=== PATIENT | female | born 1995 | race Caucasian/White ===

== ENCOUNTER 2017-07-12 11:18 | Emergency (ER) | payer BC, SELFPAY ==
[~2017-07-12 11:18] MED LIST: Iopamidol 370 76% 100 ML VIAL ONE
[2017-07-12] MEDS ORDERED: Ondansetron HCl/PF 4 MG/2 ML Vial ONE (11:50)
[2017-07-12 12:14] LABS: #Basophils 0.1 thou/uL (0.0-0.2); #Eosinphils 0.2 thou/uL (0.0-0.7); #Monocytes 0.4 thou/uL (0.11-0.59); #Neutrophils 5.6 thou/uL (1.40-6.50); %Basophils 1.4 % (0.0-1.0); %Eosinophils 2.8 % (0.0-10.0); %Lymphocytes 23.6 % (21.0-51.0); Hematocrit 46.3 % (36.0-47.0); Mean Platelet Volume 7.9 fL (7.4-10.4); Red Blood Cell (RBC) Count 5.03 mill/uL (4.20-5.40); White Blood Cell (WBC) Count 8.3 thou/uL (4.8-10.8)
[2017-07-12 12:23] LABS: ALT (SGPT) 26 U/L (8-55); AST (SGOT) 27 U/L (5-34); Alkaline Phosphatase 77 U/L (40-150); Anion Gap 17 mmol/L (10-20); BUN (Urea Nitrogen) 10 mg/dL (7.0-18.7); Bilirubin, Total 0.7 mg/dL (0.2-1.2); Calc. Creatinine Clearance 0 mL/min (70-130); Calcium 9.2 mg/dL (7.8-10.44); Carbon Dioxide 19 mmol/L (22-29); Chloride 110 mmol/L (98-107); Estimated GFR-MDRD Greater than 90; Globulin 3.6 g/dL (2.4-3.5); Lipase 22 U/L (8-78); Protein, Total 7.6 g/dL (6.0-8.3)
[2017-07-12] MEDS ORDERED: Ketorolac Tromethamine 30 MG/ML VIAL ONE (12:38)
--- NOTE | 2017-07-12 13:04 | CT ---
CT ABDOMEN AND PELVIS WITH IV CONTRAST: Date: 07/12/17 HISTORY: Abdomen pain. Nausea. COMPARISON: 11/18/11. FINDINGS: The lung bases are clear. The liver, spleen, kidneys, adrenal glands, and pancreas are within normal limits. No enlarged lymph nodes or free fluid are apparent. Follicles arise from the ovaries. Urina ry bladder is incompletely distended. Motion artifact is present, limiting detail somewhat. Lack of oral contrast limits evaluation of the bowel. IMPRESSION: No significant abnormalities are demonstrated. POS: [facility]MA[facility]
== END 2017-07-12 13:40 | disposition home or self-care (01) ==
LOC: SCSER 11:18
DX: R10.31 Right lower quadrant pain (principal); F41.9 Anxiety disorder, unspecified; F32.9 Major depressive disorder, single episode, unspecified; I10 Essential (primary) hypertension
CPT/HCPCS: 36415; 74177; 80053; 83690; 84703; 85025; 96361; 96374; 96375; J1885; J2270; J2405

== ENCOUNTER 2020-10-23 12:07 | Outpatient (CLI) | payer OTHER ==
[2020-10-23 14:31] LABS: BHCG - Serum Negative (NEGATIVE); Pregs Control Background? CLEAR/WHITE (CLR/WHITE); Pregs Control Bar Appear? YES (CONTROL BAR)
[2020-10-24 06:44] LABS: SARS-CoV-2 PCR by NAA Not Detected (NotDetected)
== END 2020-10-23 12:08 | disposition home or self-care (01) ==
LOC: LABBT 12:07
PROVIDERS: ATTEND Student in an Organized Health Care Education/Training Program
DX: Z01.812 Encounter for preprocedural laboratory examination (principal); Z20.822 Contact with and (suspected) exposure to COVID-19; J03.91 Acute recurrent tonsillitis, unspecified; J35.01 Chronic tonsillitis; J31.2 Chronic pharyngitis; R06.83 Snoring; F45.8 Other somatoform disorders
CPT/HCPCS: 84703; 85014; 87635; U0003; U0005

== ENCOUNTER 2020-10-28 05:57 | Day surgery (SDC) | payer OTHER ==
[2020-10-27 13:43] VITALS: BMI 49.4
[2020-10-28] MEDS ORDERED: Albuterol Sulfate HFA (OR ONLY) ONE (06:49)
[2020-10-28] MEDS ORDERED: Fentanyl 250 MCG/5 ML VIAL ONE (06:49)
[2020-10-28] MEDS ORDERED: Lidocaine 4% Topical Sol 50 ML BOT ONE (06:49)
[2020-10-28] MEDS ORDERED: Midazolam HCl 2 mg/2 ml Vial ONE (07:10)
[2020-10-28] MEDS ORDERED: Acetaminophen 500 MG TAB ONE (07:10)
[2020-10-28] MEDS ORDERED: Morphine 4 MG/ML VIAL ONE (07:51)
[2020-10-28] MEDS ORDERED: Albuterol Sulfate 1.25 MG/3 ML NEB ONE (08:19)
[2020-10-28] MEDS ORDERED: Promethazine HCl 25 MG/ML VIAL ONE (08:29)
[2020-10-28] MEDS ORDERED: Ondansetron PF 4 MG/2 ML Vial ONE ×2 (09:20→11:21)
[2020-10-28] MEDS ORDERED: Dexamethasone 20 MG/5 ML VIAL ONE (11:21)
[2020-10-28] MEDS ORDERED: Rocuronium Bromide 10 MG/ML (10ML VIAL) ONE (11:21)
[2020-10-28] MEDS ORDERED: Succinylcholine 200 MG/10 ml SYRINGE FS ONE (11:21)
[2020-10-28] MEDS ORDERED: Ketorolac Tromethamine 30 MG/ML VIAL ONE (11:21)
[2020-10-28] MEDS ORDERED: PROPOFOL 200 MG/20 ML VIAL ONE (11:21)
[2020-10-28] MEDS ORDERED: Lidocaine 1% PF 5 ML VIAL ONE (11:21)
--- NOTE | 2020-10-30 07:23 | OP ---
DATE OF PROCEDURE: 10/28/2020 PROCEDURE PERFORMED: Tonsillectomy. PREOPERATIVE DIAGNOSIS: Recurrent tonsillitis. POSTOPERATIVE DIAGNOSIS: Recurrent tonsillitis and tonsillar hypertrophy. PERMIT: Procedures, benefits and risks including those of bleeding, infection, injury to anesthesia, allergic reaction, and recurrent oropharyngeal bleeding causing return to operating room and cautery were discussed with the patient and family, who expressed understanding of the information and consent form was signed and witnessed. The paper copy of the consent form is not available for review in the paper chart. INDICATIONS: Patient presenting to the clinic with acute tonsillitis, requiring antibiotic as well as chronic tonsillitis and pain is well controlled. DESCRIPTION OF OPERATION: The patient was brought to the operating room, laid supine on the operating room table. Anesthesia was induced. A complete time-out was performed before commencement of the surgical procedure. The table was turned 90 degrees. The patient was suspended using a Noni-Ruslan mouth gag. A red rubber catheter was used to place in the nares and used to examine the nasopharynx. Attention was turned to the right tonsil. The tonsil was removed first by incising the anterior pillar and then dissecting from its inferior fossa of bridging vessels and fibers were cauterized with the Bovie on a setting of 15, so was removed anatomically in its entirety. Hemostasis was achieved using suction cautery. Attention was turned to the left tonsil. Left tonsil was removed in the identical manner. The nasopharynx was irrigated and suctioned. The stomach contents were suctioned. The patient was turned back to anesthesia for emergence. Job ID: [id number]
== END 2020-10-28 10:03 | disposition home or self-care (01) ==
LOC: SDC 05:57
PROVIDERS: ATTEND Student in an Organized Health Care Education/Training Program
PROC: 0CTPXZZ Resection of Tonsils, External Approach (ICD-10-PCS; principal; 2020-10-28)
DX: J03.91 Acute recurrent tonsillitis, unspecified (principal); J35.01 Chronic tonsillitis; F45.8 Other somatoform disorders; F32.9 Major depressive disorder, single episode, unspecified; F41.9 Anxiety disorder, unspecified; Z79.899 Other long term (current) drug therapy
CPT/HCPCS: 88304; J1100; J1885; J2250; J2270; J2405; J2550; J2704; J3010

== ENCOUNTER 2021-07-28 08:58 | Outpatient (CLI) | payer OTHER ==
[2021-07-28 21:46] LABS: SARS-CoV-2 PCR by NAA Not Detected (NotDetected)
== END 2021-07-28 08:59 | disposition home or self-care (01) ==
LOC: LABBT 08:58
PROVIDERS: ATTEND Internal Medicine
DX: Z01.812 Encounter for preprocedural laboratory examination (principal); Z20.822 Contact with and (suspected) exposure to COVID-19
CPT/HCPCS: U0003; U0005

== ENCOUNTER 2021-07-30 06:10 | Day surgery (SDC) | payer OTHER ==
[2021-07-29 14:47] VITALS: BMI 51.2
[2021-07-30] MEDS ORDERED: Midazolam HCl 2 mg/2 ml Vial ONE (07:50)
[2021-07-30] MEDS ORDERED: PROPOFOL 200 MG/20 ML VIAL ONE (08:07)
[2021-07-30] MEDS ORDERED: Lidocaine 1% PF 5 ML VIAL ONE (08:07)
[2021-07-30] MEDS ORDERED: Ondansetron PF 4 MG/2 ML Vial ONE (08:07)
== END 2021-07-30 09:45 | disposition home or self-care (01) ==
LOC: SDC 06:10
PROVIDERS: ATTEND Internal Medicine
PROC: 0DB68ZX Excision of Stomach, Via Natural or Artificial Opening Endoscopic, Diagnostic (ICD-10-PCS; principal; 2021-07-30)
PROC: 0DBE8ZX Excision of Large Intestine, Via Natural or Artificial Opening Endoscopic, Diagnostic (ICD-10-PCS; principal; 2021-07-30)
DX: K29.50 Unspecified chronic gastritis without bleeding (principal); K21.00 Gastro-esophageal reflux disease with esophagitis, without bleeding; K44.9 Diaphragmatic hernia without obstruction or gangrene; K64.8 Other hemorrhoids; R10.30 Lower abdominal pain, unspecified; R19.7 Diarrhea, unspecified; R11.0 Nausea; R14.0 Abdominal distension (gaseous); R63.5 Abnormal weight gain; Z68.43 Body mass index [BMI] 50.0-59.9, adult; Z79.899 Other long term (current) drug therapy
CPT/HCPCS: 88305; 88312; J2250; J2405; J2704